=== PATIENT | female | born 1995 | race Caucasian/White ===

== ENCOUNTER 2018-01-06 14:44 | Emergency (ER) | payer MEDICAID, MEDICARE ==
[~2018-01-06] VITALS: Ht 162.6 cm; Wt 59.0 kg
[2018-01-06] MEDS ORDERED: KETOROLAC 30MG/ML VIAL IV ONE (15:45)
[2018-01-06] MEDS ORDERED: SODIUM CHLORIDE 0.9% 500 ML IV ONE (15:45)
[2018-01-06] MEDS ORDERED: MORPHINE SULFATE 10 MG/ML CPJ IV ONE (15:45)
[2018-01-06 19:15] VITALS: BP 120/70
== END 2018-01-06 19:28 | disposition home or self-care (01) ==
LOC: ER 14:52
DX: R51 Headache (principal); H53.8 Other visual disturbances; Z98.890 Other specified postprocedural states
CPT/HCPCS: 99283; J1885; J7040

== ENCOUNTER 2024-12-04 22:15 | Emergency (ER) | payer MEDICARE ==
[~2024-12-04] VITALS: Ht 149.9 cm; Wt 88.0 kg
[2024-12-04 22:22] VITALS: BP 133/79; PULSE 96; RESP 18; TEMP 98.7; O2SAT 98
[2024-12-04 22:57] LABS: BASOPHILS % 0.5 % (0.0-2.0); HEMATOCRIT. 40.8 % (36.0-48.0); HEMOGLOBIN. 13.9 g/dL (12.0-16.0); LYMPHOCYTES % 34.3 % (20.0-50.0); MEAN CORPUSCULAR HEMOGLOBIN 32.2 pg (28.0-32.0); MEAN CORPUSCULAR VOLUME 94.6 fL (81.0-99.0); MEAN PLATELET VOLUME 7.2 fl (7.4-10.4); MONOCYTES % 7.1 % (2.0-8.0); NEUTROPHILS % 57.1 % (40.0-76.0); PLATELET 316 x1000/uL (130-400); RED BLOOD CELL COUNT 4.31 mill/uL (4.2-5.4); RED CELL DISTRIBUTION WIDTH 13.5 % (11.6-14.6); WHITE BLOOD COUNT 9.4 x1000/uL (4.5-11.0)
[2024-12-04 23:06] LABS: CHLORIDE 107 mEq/L (98-107); POTASSIUM 3.6 mEq/L (3.5-5.1); SODIUM 139 mEq/L (136-145)
[2024-12-04 23:07] LABS: CARBON DIOXIDE 22 mEq/L (21-32)
[2024-12-04 23:08] LABS: CALCIUM 9.3 mg/dL (8.7-10.4); HCG SCREEN NEGATIVE
[2024-12-04 23:12] LABS: CREATININE 0.6 mg/dL (0.6-1.0); GLUCOSE 140 mg/dL (70-105)
[2024-12-04 23:13] LABS: UREA NITROGEN BLOOD 19 mg/dL (9-23)
[2024-12-04 23:14] LABS: ALANINE AMINOTRANSFERASE 172 IU/L (10-49); ALBUMIN 4.5 g/dL (3.2-4.8); ASPARTATE AMINOTRANSFERASE 79 IU/L (<34); BILIRUBIN DIRECT < 0.1 mg/dL (<=3.0); BILIRUBIN TOTAL 0.3 mg/dL (0.1-1.0); PROTEIN TOTAL 8.1 g/dL (6.0-8.3); TROPONIN I HIGH SENSITIVITY < 4 ng/L (3.0-34)
[2024-12-05] MEDS ORDERED: IOHEXOL-350 100 ML BOTTLE ONE (03:20)
== END 2024-12-05 02:47 | disposition home or self-care (01) ==
LOC: ER 22:31
DX: R07.9 Chest pain, unspecified (principal); E11.9 Type 2 diabetes mellitus without complications; E78.00 Pure hypercholesterolemia, unspecified; Z98.890 Other specified postprocedural states
CPT/HCPCS: 99285; 71045; 80076; 80048; 84703; 83880; 83690; 85025; 85379; 84484; 36415; 93005; 71275; Q9967